=== PATIENT | female | born 1945 | race African-American/Black ===

== ENCOUNTER 2020-05-09 13:27 | Inpatient (IN) | payer MEDICARE, OTHER ==
[~2020-05-09] VITALS: Ht 162.6 cm; Wt 76.2 kg
[2020-05-09] MEDS ORDERED: MECLIZINE 25MG TABLET PO ONE (14:00)
[2020-05-09] MEDS ORDERED: ONDANSETRON HCL 4MG/2ML INJ IV ONE (14:00)
[2020-05-09] MEDS ORDERED: SODIUM CHLORIDE 0.9% 250 ML IV ONE (14:00)
[2020-05-09 14:25] LABS: BASOPHILS % 0.5 % (0.0-2.0); HEMATOCRIT. 44.7 % (36.0-48.0); HEMOGLOBIN. 14.7 g/dL (12.0-16.0); LYMPHOCYTES % 14.8 % (20.0-50.0); MEAN CORPUSCULAR VOLUME 85.3 fL (81.0-99.0); MONOCYTES % 2.8 % (2.0-8.0); NEUTROPHILS % 81.9 % (40.0-76.0); PLATELET 248 x1000/uL (130-400); RED BLOOD CELL COUNT 5.24 mill/uL (4.2-5.4); RED CELL DISTRIBUTION WIDTH 13.9 % (11.6-14.6)
[2020-05-09 14:32] LABS: CHLORIDE 105 mEq/L (98-107)
[2020-05-09 14:35] LABS: PROTHROMBIN TIME 10.9 sec (9.6-11.0)
[2020-05-09] MEDS ORDERED: ASPIRIN 325MG EC TABLET PO NR (19:00)
[2020-05-09] MEDS ORDERED: CLONIDINE 0.1MG TABLET PO PRN (22:37)
[2020-05-09 23:00] VITALS: BP 166/93
[2020-05-10 04:00] VITALS: BP 128/86
[2020-05-10] MEDS: PANTOPRAZOLE 40MG DR TABLET PO SCH (06:24)
[2020-05-10] MEDS: METOPROLOL TARTRATE 50MG TABLET PO SCH ×2 (06:24→18:28)
[2020-05-10 07:39] LABS: CHLORIDE 105 mEq/L (98-107)
[2020-05-10 07:40] LABS: BASOPHILS % 0.5 % (0.0-2.0); EOSINOPHILS % 1.2 % (0.0-5.0); HEMATOCRIT. 41.3 % (36.0-48.0); HEMOGLOBIN. 13.5 g/dL (12.0-16.0); LYMPHOCYTES % 31.4 % (20.0-50.0); MEAN CORPUSCULAR HEMOGLOBIN 28.4 pg (28.0-32.0); MEAN CORPUSCULAR VOLUME 86.7 fL (81.0-99.0); MEAN PLATELET VOLUME 9.8 fl (7.4-10.4); MONOCYTES % 8.1 % (2.0-8.0); NEUTROPHILS % 58.8 % (40.0-76.0); PLATELET 232 x1000/uL (130-400); RED BLOOD CELL COUNT 4.77 mill/uL (4.2-5.4); RED CELL DISTRIBUTION WIDTH 13.9 % (11.6-14.6)
[2020-05-10 07:49] LABS: LDL CHOLESTEROL 118 mg/dL (5-100)
[2020-05-10 07:52] LABS: HDL CHOLESTEROL 63 mg/dL (40-59)
[2020-05-10 08:00] VITALS: BP 130/82
[2020-05-10] MEDS ORDERED: POTASSIUM CHLORIDE 20MEQ TABLET SR PO SCH (09:00)
[2020-05-10] MEDS: ASPIRIN 81MG TABLET PO SCH (10:19)
[2020-05-10] MEDS: ENOXAPARIN 40MG/0.4ML SYR SUBCUT SCH (10:19)
[2020-05-10 12:00] VITALS: BP 128/79
[2020-05-10 16:00] VITALS: BP 130/76
[2020-05-10 20:00] VITALS: BP_SYST 139; BP_SYST 149; BP_SYST 156; BP_DIAS 87; BP_DIAS 89; BP_DIAS 93
[2020-05-10 20:27] LABS: CLARITY URINE CLOUDY (CLEAR); COLOR URINE YELLOW (YELLOW); KETONES URINE TRACE (NEGATIVE); LEUKOCYTE ESTERASE URINE 2+ (NEGATIVE); NITRITE URINE NEGATIVE (NEGATIVE); OCCULT BLOOD URINE NEGATIVE (NEGATIVE); PH URINE 5.5 (4.5-8.0); PROTEIN URINE TRACE (NEGATIVE); SPECIFIC GRAVITY URINE 1.033 (1.005-1.030); UROBILINOGEN URINE 0.2 E.U./dL (0.2-1.0)
[2020-05-10 20:55] LABS: T4 FREE 1.01 ng/dL (0.76-1.46)
[2020-05-10] MEDS ORDERED: ATORVASTATIN CALCIUM 40MG TABLET PO SCH (21:00)
[2020-05-10 21:10] LABS: FOLIC ACID (FOLATE) SERUM >20 ng/mL ng/mL (>5.38)
[2020-05-10 21:20] LABS: VITAMIN B12 SERUM 627 pg/mL (211-911)
[2020-05-11] VITALS: BP 138/76
[2020-05-11 04:00] VITALS: BP 128/77
[2020-05-11] MEDS: METOPROLOL TARTRATE 50MG TABLET PO SCH (06:06)
[2020-05-11] MEDS: PANTOPRAZOLE 40MG DR TABLET PO SCH (06:06)
[2020-05-11] MEDS ORDERED: CLOPIDOGREL 75MG TABLET PO SCH (09:00)
[2020-05-11] MEDS: ASPIRIN 81MG TABLET PO SCH (09:26)
[2020-05-11] MEDS: ENOXAPARIN 40MG/0.4ML SYR SUBCUT SCH (09:26)
[2020-05-11] MEDS ORDERED: POTASSIUM CHLORIDE 20MEQ TABLET SR PO NR (12:30)
[2020-05-11] MEDS ORDERED: AMLO5TAB88 MT (12:46)
[2020-05-11] MEDS ORDERED: LIP40 MT (12:46)
[2020-05-11] MEDS ORDERED: CLOP75TA15 PO (12:46)
[2020-05-11 14:47] VITALS: BP 130/72
[2020-05-12] MEDS ORDERED: FAMOTIDINE 20MG TABLET PO SCH (09:00)
== END 2020-05-11 16:40 | disposition home or self-care (01) | DRG 65 ==
LOC: ER 13:38 → 6WST 18:39 → EDBEDREQ 18:46 → EDBEDREQTM 18:46 → EDBEDREQSVC 18:46 → ENRESERV 21:14
PROVIDERS: ADMIT Internal Medicine; ATTEND Internal Medicine
DX: I63.9 Cerebral infarction, unspecified (principal); I16.1 Hypertensive emergency; E78.00 Pure hypercholesterolemia, unspecified; E78.5 Hyperlipidemia, unspecified; R26.89 Other abnormalities of gait and mobility; I10 Essential (primary) hypertension; I65.1 Occlusion and stenosis of basilar artery; Z82.49 Family history of ischemic heart disease and other diseases of the circulatory system; I66.12 Occlusion and stenosis of left anterior cerebral artery; I66.22 Occlusion and stenosis of left posterior cerebral artery; R20.0 Anesthesia of skin; M79.609 Pain in unspecified limb
CPT/HCPCS: 36415; 70496; 70498; 70551; 71045; 80048; 80053; 80061; 81003; 82607; 82746; 83036; 83605; 83880; 84145; 84439; 84443; 84481; 84484; 85025; 93005; 93306; 97112; 97116; 97162; 97166; 97535; 99285; J1650; J2405; J7050; J8597